=== PATIENT | female | born 1990 | race Caucasian/White ===

== ENCOUNTER 2017-07-13 23:24 | Observation (INO) ==
[2017-07-13] MEDS ORDERED: DEXAMETHASONE 4 MG/ML INJECTION IVP ONE (23:29)
--- NOTE | 2017-07-13 23:39 | Emergency Department Report ---
Seizure HPI - General Stated Complaint: Seizure Time Seen by Provider: 07/13/17 23:28 Source: patient, EMS Mode of arrival: EMS Limitations: no limitations - History of Present Illness HPI Narrative: Pt has known seizure hx and takes Vimpat 200mg BID. Loami "odd" this evening, then had her first sx at 2100 - "awoke in my bed feeling like I had had a seizure" She called EMS because she had ongoing tremors and feelings of something wrong. En route Pt had second tonic/clonic seizure with LOC for 1-2 minutes. Was given Ativan 2mg and immediately stopped seizing and remembered who she was, who the paramedics were and asked if she had another seizure. Pt admits 2-3 beers nightly, and states she has 1 seizure sometime routinely, but never two. Patient's last seizure prior to this was in April Recently moved from [facility]. New to Dr. Gibson's practice with no local neurologist. Patient also complains of awakening after her seizure with mild abdominal discomfort. No specific area of pain, no nausea, but vague epigastric discomfort. During seizure patient had no oral injury, no tendon injury, no head injury, did not lose control of her bladder or bowels, and had no other injury. also notes that her neurologist is given her prescription for Ativan 1 mg , to use as needed when she "feels a seizure coming on." - Related Data Home Medications Medication Instructions Recorded Confirmed LORazepam [Lorazepam] 1 tab PO DAILY 07/13/17 07/14/17 Previous Rx's Medication Instructions Recorded norgestimate 0.25 mg-ethinyl 1 tab PO DAILY #84 tab 06/16/17 estradiol 35 mcg tablet lacosamide 200 mg tablet 200 mg PO BID #60 tab 06/29/17 paroxetine 20 mg tablet 20 mg PO QAM #30 tab 06/29/17 Allergies Allergy/AdvReac Type Severity Reaction Status Date / Time cocoa beans Allergy Severe Rash and Uncoded 07/13/17 23:59 watery eyes, coughing and hard to breathe [facility] Patient Stated Medical History Other Musculoskeletal Yes: ARTHRITIS Depression Yes Clinic Medical History Arthritis (Chronic Medical) Depression (Chronic Medical) Seizure disorder (Chronic Medical) Surgical History: Reconstruction of right shoulder 2006. Reconstruction of left shoulder 2008. Reconstruction of right shoulder 2009. Reconstruction of right shoulder 2015. Repair of screws in left shoulder 2017 Family History: Family History Mother Arthritis Diabetes Maternal Grandmother Hypertension Diabetes Father Liver disease Maternal Grandfather Diabetes Hypertension - Social History Smoking status: Current every day smoker Physical Exam - Limitations Limitations: no limitations - General General appearance: alert - Normal Exams: Head:: Normocephalic without trauma Eyes:: Pupils are PERRLA w/ EOMI, No scleral icterus, irritation, or foreign bodies noted ENMT:: No facial trauma, nasal exudates, pharyngeal erythema, or exudates are noted Neck:: Full range of motion, without adenopathy, JVD, bruits or thyromegaly Cardiovascular:: Regular rate and rhythm, without murmur or gallop, Pulses 2+ all extremities, capillary refill, <2 seconds all extremities Abdomen:: Bowel sounds positive, soft, non-tender, non-distended, no hepatosplenomegaly, masses or bruits noted Lymphatic:: No lymphadenopathy, or lymphedema noted Musculoskeletal:: No tenderness, or deformity noted, good range of motion, all extremities Integumentary:: No rashes, hives, or bruising noted, hair and nails, without abnormality Neurological:: Patient is alert, and oriented, cranial nerves, motor/sensory/ cerebellar, exams w/o gross deficits, to observation Psychiatric:: Patient exhibits, appropriate attention, emotion and affect Course Vital Signs Temperature 98.5 F 07/13/17 23:27 Pulse Rate 93 07/13/17 23:27 Respiratory Rate 19 07/13/17 23:27 Blood Pressure 141/82 H 07/13/17 23:27 Pulse Oximetry 98 07/13/17 23:27 Temperature 98.5 F 07/13/17 23:27 Pulse Rate 93 07/13/17 23:27 Respiratory Rate 19 07/13/17 23:27 Blood Pressure 141/82 H 07/13/17 23:27 Pulse Oximetry 98 07/13/17 23:27 Seizure - MDM Narrative Medical decision making narrative: Later on secondary exam, patient complains of left posterior shoulder pain, stating that she feels like she might of hit her left shoulder: Ambulance. I spoke with paramedics, patient had no significant trauma in the ambulance, did not strike anything, and had no visible trauma externally. Patient continues to complain of sharp shooting pains through the left shoulder from back to front, similar to when she was coming out of anesthesia after her bilateral shoulder surgeries. Patient is given Toradol 30 mg IV Throughout the ER visit, patient had a rather odd affect, that was consistent between examiners. CBC - normal CMP/L - minimal electrolyte abnormalities only, consistent with mild dehydration versus postictal state EtOH is minimally elevated at 35, consistent with the patient's history of 2-3 beers earlier in the evening U A/P - negative Prolactin - elevated 29.5 Patient discussed with hospitalist, patient will be accepted for recurrent seizures, for overnight observation - Lab Data Result diagrams: 07/13/17 23:42 07/13/17 23:42 Lab Results 07/13/17 07/13/17 07/13/17 Range/Units 23:39 23:39 23:39 WBC (4.5-11.0) T/MM3 RBC (4.00-5.20) M/MM3 Hgb (12-16) GM/DL Hct (36-46) % MCV (80-100) UM3 MCH (26-34) UUG MCHC (31-37) GM/DL RDW Std Deviation (36.9-50.2) FL Plt Count (130-400) T/MM3 MPV (9.4-12.4) UM3 Immature Gran % (Auto) (0.0-0.5) % Neut % (Auto) (33-66) % Lymph % (Auto) (23-45) % Coffey % (Auto) (0-9.0) % Eos % (Auto) (0-4) % Baso % (Auto) (0-2) % Neut # (1.8-7.7) T/MM3 Lymph # (1-4.8) T/MM3 Coffey # (0-0.8) T/MM3 Eos # (0-0.5) T/MM3 Baso # (0-0.2) T/MM3 Abs Immat Gran (auto) (0.00-0.03) T/MM3 Turbidity (0-20) Sodium (134-144) MEQ/L Potassium (3.6-5) MEQ/L Chloride (98-107) MEQ/L Carbon Dioxide (22-30) MEQ/L Anion Gap (5-15) MEQ/L BUN (7-17) MG/DL Creatinine (0.7-1.2) MG/DL GFR Calculation BUN/Creatinine Ratio (6-26) RATIO Glucose (65-110) MG/DL Calculated Osmolality (261-280) MOSM/KG Calcium (8.4-10.2) MG/DL Total Bilirubin (0.20-1.30) MG/DL Conjugated Bilirubin (0.00-0.30) MG/DL Unconjugated Bilirubin (0.00-11.10) MG/DL Icterus Index (0-7) AST (14-36) U/L ALT (9-52) U/L Alkaline Phosphatase (38-126) U/L Total Protein (6.3-8.2) G/DL Albumin (3.5-5.0) G/DL Globulin (2.4-3.6) G/DL Albumin/Globulin Ratio (1.1-2.2) RATIO Lipase (23-300) U/L Prolactin NG/ML Specimen Hemolysis (0-25) Ur Collection Type Urine, clean catch Urine Color Yellow (YELLOW) Urine Clarity Clear Urine pH 6.0 (5.0-8.0) Ur Specific [place] 1.015 (1.015-1.025) Urine Protein Negative (NEGATIVE) Urine Glucose (UA) Negative (NEGATIVE) Urine Ketones Negative (NEGATIVE) Urine Occult Blood 3+ A (NEGATIVE) Urine Nitrate Negative (NEGATIVE) Urine Bilirubin Negative (NEGATIVE) Urine Urobilinogen 0.2 (NORMAL) EU/DL Ur Leukocyte Esterase Negative (NEGATIVE) Urine RBC None seen (0-3) /HPF Urine WBC None seen (0-5) /HPF Ur Squamous Epith Cells 0-5 Urine Bacteria None seen (NEGATIVE) Ur Culture Indicated? Cult not indicated Urine Test Negative (Negative) Urine Opiates Screen Negative ng/mL Ur Oxycodone Screen Negative ng/mL Urine Methadone Screen Negative ng/mL Ur Propoxyphene Screen Negative ng/mL Ur Barbiturates Screen Negative ng/mL U Tricyclic Antidepress Negative ng/mL Ur Phencyclidine Scrn Negative ng/mL Ur Amphetamines Screen Negative ng/mL U Methamphetamines Scrn Negative ng/mL U Benzodiazepines Scrn Positive ng/mL Urine Cocaine Screen Negative ng/mL U Cannabinoids Screen Negative ng/mL Ur Drug Screen Confirm Alcohol, Quantitative (<10) MG/DL 08/15/17 08/15/17 08/15/17 Range/Units 23:39 23:42 23:42 WBC 10.7 (4.5-11.0) T/MM3 RBC 4.02 (4.00-5.20) M/MM3 Hgb 12.7 (12-16) GM/DL Hct 37.3 (36-46) % MCV 92.8 (80-100) UM3 MCH 31.6 (26-34) UUG MCHC 34.0 (31-37) GM/DL RDW Std Deviation 43.0 (36.9-50.2) FL Plt Count 245 (130-400) T/MM3 MPV 12.1 (9.4-12.4) UM3 Immature Gran % (Auto) 0.1 (0.0-0.5) % Neut % (Auto) 40.7 (33-66) % Lymph % (Auto) 52.1 H (23-45) % Coffey % (Auto) 4.8 (0-9.0) % Eos % (Auto) 1.9 (0-4) % Baso % (Auto) 0.4 (0-2) % Neut # 4.4 (1.8-7.7) T/MM3 Lymph # 5.6 H (1-4.8) T/MM3 Coffey # 0.5 (0-0.8) T/MM3 Eos # 0.2 (0-0.5) T/MM3 Baso # 0.0 (0-0.2) T/MM3 Abs Immat Gran (auto) 0.01 (0.00-0.03) T/MM3 Turbidity < 20 (0-20) Sodium 145 H (134-144) MEQ/L Potassium 4.2 (3.6-5) MEQ/L Chloride 112 H (98-107) MEQ/L Carbon Dioxide 18 L (22-30) MEQ/L Anion Gap 15 (5-15) MEQ/L BUN 6.0 L (7-17) MG/DL Creatinine 0.5 L (0.7-1.2) MG/DL GFR Calculation 150 BUN/Creatinine Ratio 12 (6-26) RATIO Glucose 73 (65-110) MG/DL Calculated Osmolality 276 (261-280) MOSM/KG Calcium 9.6 (8.4-10.2) MG/DL Total Bilirubin 0.70 (0.20-1.30) MG/DL Conjugated Bilirubin 0.00 (0.00-0.30) MG/DL Unconjugated Bilirubin 0.10 (0.00-11.10) MG/DL Icterus Index < 2 (0-7) AST 27 (14-36) U/L ALT 25 (9-52) U/L Alkaline Phosphatase 66 (38-126) U/L Total Protein 7.6 (6.3-8.2) G/DL Albumin 4.4 (3.5-5.0) G/DL Globulin 3.2 (2.4-3.6) G/DL Albumin/Globulin Ratio 1.4 (1.1-2.2) RATIO Lipase 111 (23-300) U/L Prolactin 29.2 NG/ML Specimen Hemolysis 99 H (0-25) Ur Collection Type Urine Color (YELLOW) Urine Clarity Urine pH (5.0-8.0) Ur Specific [place] (1.015-1.025) Urine Protein (NEGATIVE) Urine Glucose (UA) (NEGATIVE) Urine Ketones (NEGATIVE) Urine Occult Blood (NEGATIVE) Urine Nitrate (NEGATIVE) Urine Bilirubin (NEGATIVE) Urine Urobilinogen (NORMAL) EU/DL Ur Leukocyte Esterase (NEGATIVE) Urine RBC (0-3) /HPF Urine WBC (0-5) /HPF Ur Squamous Epith Cells Urine Bacteria (NEGATIVE) Ur Culture Indicated? Urine Test (Negative) Urine Opiates Screen ng/mL Ur Oxycodone Screen ng/mL Urine Methadone Screen ng/mL Ur Propoxyphene Screen ng/mL Ur Barbiturates Screen ng/mL U Tricyclic Antidepress ng/mL Ur Phencyclidine Scrn ng/mL Ur Amphetamines Screen ng/mL U Methamphetamines Scrn ng/mL U Benzodiazepines Scrn ng/mL Urine Cocaine Screen ng/mL U Cannabinoids Screen ng/mL Ur Drug Screen Confirm Sent out Alcohol, Quantitative 35 (<10) MG/DL Disposition Clinical Impression: Seizures [place]: 02 [place] [facility] [place] Improved Prescriptions: No Action LORazepam [Lorazepam] 1 tab PO DAILY paroxetine 20 mg tablet 20 mg PO QAM #30 tab norgestimate 0.25 mg-ethinyl estradiol 35 mcg tablet 1 tab PO DAILY #84 tab lacosamide 200 mg tablet 200 mg PO BID #60 tab - Seen By: physician
[2017-07-14] MEDS ORDERED: NS 1,000 ML IV ONE
[2017-07-14] MEDS: SALINE FLUSH 10ml SYRINGE IVF PRN ×2 (00:15→01:58)
[2017-07-14] MEDS ORDERED: KETOROLAC 30 MG/ML INJECTION IVP ONE (00:38)
[2017-07-14] MEDS ORDERED: ORPHENADRINE 60 MG/2 ML INJECTION IV ONE (01:44)
[2017-07-14] MEDS ORDERED: HYDROMORPHONE 2 MG/ML INJECTION IVP ONE (01:44)
[2017-07-14] MEDS ORDERED: HYDROCODONE/APAP 5mg/325mg TABLET PO PRN ×2 (02:13→03:53)
[2017-07-14] MEDS ORDERED: ONDANSETRON 4 MG/2 ML INJECTION IVP PRN (02:13)
[2017-07-14 03:01] VITALS: BMI 37.3
--- NOTE | 2017-07-14 03:57 | History & Physical Report ---
History of Present Illness Date: 07/14/17 Chief complaint: seizure HPI: The pt has a known seizure disorder and has been on Vimpat 200 BID for 2-3 months and was doing well until tonight when she had a grand mal seizure at home. She denies any significant pain except for chronic pain in the shoulder. There was no incontinence, the pt states she usually has a seizure once a month, but not associated with her monthly menses which she is currently on. Seizure were dx in 2001, and triggered by stress, depression, anger, or anxiety. Review of Systems - Constitutional Constitutional: Present: daytime sleepiness, fatigue - EENMT Mouth/Throat: Absent: sore throat, sores - Cardiovascular Cardiovascular: Absent: chest pain - Respiratory Respiratory: Absent: dyspnea - Gastrointestinal Gastrointestinal: Absent: abdominal pain - Genitourinary Genitourinary: Absent: abnormal menses, urinary incontinence - Musculoskeletal Musculoskeletal: Present: joint swelling, limited range of motion PFS Patient Stated Medical History Seizures Yes: epilepsy Asthma Yes Pneumonia Yes Osteoarthritis Yes Other Musculoskeletal Yes: ARTHRITIS Anesthesia Reactions Yes: possibility caused seizures Depression Yes Ovarian Cysts Yes Clinic Medical History Arthritis (Chronic Medical) Depression (Chronic Medical) Seizure disorder (Chronic Medical) Surgical History: Reconstruction of right shoulder 2006. Reconstruction of left shoulder 2009. Reconstruction of right shoulder 2009. Reconstruction of right shoulder 2014. Repair of screws in left shoulder 2017 Family History: Family History Mother Arthritis Diabetes Maternal Grandmother Hypertension Diabetes Father Liver disease Maternal Grandfather Diabetes Hypertension - Social History Smoking status: Current every day smoker Medications Home Medications Medication Instructions Recorded Confirmed Type LORazepam [Lorazepam] 1 tab PO DAILY 07/13/17 07/14/17 History Allergies Allergy/AdvReac Type Severity Reaction Status Date / Time cocoa beans Allergy Severe Rash and Uncoded 07/13/17 23:59 watery eyes, coughing and hard to breathe Exam Vital Signs: Temperature 98.5 F 07/13/17 23:27 Pulse Rate 79 07/14/17 02:00 Respiratory Rate 16 07/14/17 02:00 Blood Pressure 136/81 07/14/17 02:00 Pulse Oximetry 97 07/14/17 02:00 Height/Weight/BMI: Height 1.55 m Weight 89.5 kg Body Mass Index 37.3 - Constitutional Present: no acute distress, well nourished - Routine HEENT Exam Head: Present: normocephalic, atraumatic. Absent: abrasion, laceration Eye: Present: EOMI, PERRL ENT: Present: mucous membranes moist - Routine Neck Exam Present: supple - Routine Respiratory Exam Present: CTA bilaterally - Routine Cardiovascular Exam Present: RRR, no murmur - Routine Abdominal Exam Present: soft, normoactive bowel sounds, tenderness, non distended, non tender - Routine Skin Exam Present: intact - Routine Neurological Exam Present: alert, oriented X3, CN II-XII intact - Routine Psychiatric Exam Present: normal affect Results - Labs CBC & Chem 7: 07/13/17 23:42 07/13/17 23:42 Assessment and Plan (1) Seizures Current visit: Yes Status: Acute 07/14/17 03:59 will admit the pt and have seizure precautions, restart vimpat, consult neuro, monitor for changes. Resuscitation Status: Full Code Hospital Course Summary Disclaimer: The visit summary below is not to be considered part of the above Progress Note.
[2017-07-14] MEDS ORDERED: LACOSAMIDE 100mg TABLET PO SCH ×2 (04:00→09:00)
--- NOTE | 2017-07-14 08:40 | Progress Note ---
<Megan Gallegos V - Last Filed: 07/14/17 08:45> Subjective: Meli is seen this morning following phone call from nursing staff reporting a active grand mal seizure lasting approx 2 minutes. She is noted to be postictal during examination however she will slowly become more alert and states "I think I had a seizure". Airway is protected during seizure activity. She complains generalized pain following seizure. She does report that she missed a dose of Vimpat on Wednesday night however has been compliant since that time. Objective Vital signs: Temperature 98.0 F 07/14/17 07:23 Pulse Rate 64 07/14/17 07:36 Respiratory Rate 14 07/14/17 07:23 Blood Pressure 132/82 07/14/17 07:23 Pulse Oximetry 98 07/14/17 07:23 Oxygen Delivery Method Room Air Height/Weight/BMI: Height 1.55 m Weight 89.4 kg Body Mass Index 37.3 - Constitutional Present: well nourished, well developed - Routine HEENT Exam Eye: Present: EOMI ENT: Present: mucous membranes moist, dentition normal - Routine Respiratory Exam Present: CTA bilaterally. Absent: wheezes - Routine Cardiovascular Exam Present: RRR, S1, S2. Absent: murmur - Routine Abdominal Exam Present: soft, normoactive bowel sounds, non distended. Absent: tenderness - Routine Extremities Exam Present: pulses intact Comments: Left shoulder pain - Routine Skin Exam Present: intact, dry, warm - Routine Neurological Exam Present: alert, oriented X3, moving all extremities, hearing grossly intact CN 3-12 intact - Routine Lymphatic Exam Lymphatic: Absent: adenopathy - Routine Psychiatric Exam Present: normal affect Results - Labs CBC & Chem 7: 07/13/17 23:42 07/13/17 23:42 Assessment and Plan (1) Seizures Current visit: Yes Status: Acute 07/14/17 03:59 will admit the pt and have seizure precautions, restart vimpat, consult neuro, monitor for changes. Assessment and Plan: Impression Seizure Recent left shoulder surgery- March 2017 OA Plan Acutely during seizure Ativan 1 mg IV was given. Patient is chronically on Vimpat 200mg BID for seizures. She also reports that she takes 1 milligram of oral Ativan when she feels a seizure coming on. Given increased pain of the left shoulder following surgery in March. Will obtain x-ray of the left shoulder to rule out any intraosseous abnormality. Consult was placed to Dr Amanda for further neurologic evaluation, and recommendations. Will discuss further plan of care with attending Sepsis Assessment - Evaluation Sepsis screening result: No Definite Risk Hospital Course Summary Disclaimer: The visit summary below is not to be considered part of the above Progress Note. <MilStacey L - Last Filed: 07/14/17 11:20> Objective Vital signs: Temperature 98.0 F 07/14/17 07:23 Pulse Rate 64 07/14/17 07:36 Respiratory Rate 14 07/14/17 07:23 Blood Pressure 132/82 07/14/17 07:23 Pulse Oximetry 98 07/14/17 07:23 Oxygen Delivery Method Room Air Height/Weight/BMI: Height 1.55 m Weight 89.4 kg Body Mass Index 37.3 Results - Labs CBC & Chem 7: 07/13/17 23:42 07/13/17 23:42 Assessment and Plan (1) Seizures Current visit: Yes Status: Acute Assessment and Plan: Events noted, discussed with nursing/Megan Gallegos APRN; see admission H&P/ addendum. Hospital Course Summary Disclaimer: The visit summary below is not to be considered part of the above Progress Note.
[2017-07-14] MEDS ORDERED: LORazepam 1 MG TABLET PO SCH (09:00)
[2017-07-14] MEDS ORDERED: PAROXETINE 20 MG TABLET PO SCH (09:00)
[2017-07-14] MEDS ORDERED: NORGESTIMATE ETHINYL ESTRADIOL PO SCH (09:00)
--- NOTE | 2017-07-14 09:37 | XRay Report ---
Indication: left shoulder pain PROCEDURE: XR shoulder LT 2-3 views: Encounter: Initial Comparison: None Findings: There is no acute fracture, dislocation or malalignment identified. Suture anchors in the glenoid. Impression: No acute osseous abnormality. .
--- NOTE | 2017-07-14 13:26 | Consultation ---
DATE OF CONSULTATION 07/14/[address] Jaeger CHIEF COMPLAINT Seizure. HISTORY OF PRESENT ILLNESS Patient is a 27-year-old female with history of epilepsy since 2001. The patient had extensive workup done for epilepsy in the past, most of which was unremarkable as per patient and records. Her last EEG and video monitoring were a year ago and showed no seizure activities at that time. Patient described having different types of seizure including staring spells, spacing out, loss of awareness, in addition to generalized tonic-clonic seizures. Most of her grand mal seizures have happened in the evening or during sleep. Her seizures have been triggered mainly by anxiety and stress. The patient has a history of alcohol and drug abuse and she has been sober and clean for several months. The patient denies taking any illicit drugs prior to her admission. The patient presented with a generalized tonic-clonic seizure in the evening. This was typical for her seizures, lasted for a few minutes. The patient had some mild tongue biting and no incontinence. She has had mild postictal confusion. Patient described having seizure on a monthly basis, especially for the grand mal type seizure. She used to have more frequent staring spells during the daytime. All of her seizures have improved after she was switched from Depakote to Vimpat two months ago. The patient is currently on 200 mg p.o. b.i.d. of Vimpat. She has taken her medication regularly. She had skipped a few doses over the past two months. Her lab workup showed a normal white count. Her sodium level was slightly elevated. She had normal liver enzymes and her prolactin level was borderline. The patient has been complaining of left shoulder pain after the seizure and her x-rays were unremarkable. PHYSICAL EXAMINATION The patient was awake, alert, oriented x 3. Pupils were round, reactive and equal. Extraocular muscles were intact. Visual field was full. Sensory examination for light touch, pinprick and temperature sensation were all normal. Deep tendon reflexes were 2/4. Motor examination was 5-/5 in the upper extremity due to shoulder problem and 5/5 in the lower extremities. Coordination for [id number] was normal. ASSESSMENT 1. Complex partial seizure and nocturnal epilepsy. This has been controlled with Vimpat. The patient has had a few seizures in the past two months associated with increased stress and anxiety. The patient has a normal examination and no other secondary cause for seizure. PLAN 1. Continue Vimpat 200 mg p.o. b.i.d. for seizure prevention. 2. Consider adding Topamax 25 mg p.o. b.i.d. and increase it up to 100 mg p.o. b.i.d. if the patient starts having worse seizure problem. 3. Avoid sleep deprivation and stress. Avoid any usage of alcohol or street drugs. MTDD
[2017-07-14 15:39] VITALS: BP 130/85; PULSE 66; RESP 16; TEMP 96.4; O2SAT 99
--- NOTE | 2017-07-14 17:37 | Discharge Instructions ---
Discharge Plan - Med Rec/Dispo Referrals/Follow Up: Pelon Gibson DO [Family Provider] - Gerri Amnada MD [Physician] - (2-4 weeks for reevaluation of seizure control ) Ingris Instructions: Recurrent Seizures in Adults (GEN) Prescriptions: Continue LORazepam [Lorazepam] 1 tab PO DAILY paroxetine 20 mg tablet 20 mg PO QAM #30 tab norgestimate 0.25 mg-ethinyl estradiol 35 mcg tablet 1 tab PO DAILY #84 tab lacosamide 200 mg tablet 200 mg PO BID #60 tab Discharge Instructions/Outpatient Orders: Final Provider Discharge Instructions Location: Determined By Patient - Disposition 01 Discharged Home, Self-Care
--- NOTE | 2017-07-14 17:45 | Discharge Summary ---
Discharge Information Date of admission: 07/14/17 02:34 Anticipated date of discharge: 07/14/17 Attending Physician: Stacey Jaeger MD Primary care physician: Pelon Gibson DO Consults: Gerri Amanda - Discharge Diagnosis Discharge Diagnosis: Seizure disorder, partial complex - Laboratory Labs: CBC, CMP unremarkable other than HCO3 of 18. Lipase 111, prolactin 29.2. Urine drug screen positive for benzodiazepines (received lorazepam prior to hospitalization), alcohol level 35 - Radiology Radiology: X-ray left shoulder, 3 views: There is no acute fracture, dislocation or malalignment identified. Suture anchors in the glenoid. History of Present Illness HPI: Meli is a 27-year-old with known seizure disorder diagnosed in 1998. The following year she had a head injury after she tripped and struck her head on a picnic table resulting in LOC/head lac following year with increased frequency seizures thereafter. She's been treated with multiple seizure medications since that time. She was most recently on Depakote ER 1000 mg until April 2016 when Vimpat 100 mg twice a day was added to her regimen. Patient apparently discontinued Depakote in conjunction with starting Vimpat and Vimpat was subsequently increased to 200 mg twice a day in November 2016. EEG in awake and sleep deprived state in April 2016 demonstrated absence of epileptiform discharge ; video EEG was referenced in November 2016 note indicating at least one nonepileptic event. She has had past MRIs performed at [facility] in [place] although results were not referenced in the records are received. She presented to the emergency room yesterday evening after a grand mal seizure at home. She describes preceding aura typically lasting from several seconds to 5 minutes during which she feels warm and senses something bad or fearful followed by lightheadedness. She said people have told her she begins repeating herself. She describes muscle fatigue and feeling foggy prior to seizure and then she surrounded by people who tell her she's had a seizure. Grand mal symptoms described by bystanders. Patient had one event at home at approximately 9 PM yesterday evening followed by a second generalized tonic-clonic seizure en route witnessed by EMS and treated with 2 mg Ativan. She had one additional witnessed generalized seizure this morning treated with lorazepam and promptly resolved. Patient acknowledges having missed at least one dose of Vimpat 24 hours prior to onset of seizures and notes that seizures are often triggered by emotional events and that she was quite emotional yesterday evening. Hospital Course This is a general summary of the patient's hospital course. For more details refer to the complete medical record. Hospital course: Patient was admitted for observation after's 2 seizures prior to hospitalization. She had one additional seizure at approximate 8 AM on 07/14 which resolved promptly with administration of 1 mg IV Ativan. No further difficulties were encountered through the day. Patient was seen by Dr. Amanda and offered addition of low-dose Topamax in conjunction with Vimpat to minimize risk of recurrent seizures. At this time the patient elected to continue Vimpat as a single agent with intent of being more conscientious about taking medication daily. Patient was much more alert late in the afternoon and felt stable for discharge at this time. Meli was advised she should not drive until seizure free for 6 months and that she should follow-up with Dr. Gibson in approximately one week and Dr. Amanda in 2-4 weeks for reassessment of seizure control. Discharge Plan - Med Rec/Dispo Referrals/Follow Up: Gerri Amanda MD [Physician] - (2-4 weeks for reevaluation of seizure control ) Pelon Gibson DO [Family Provider] - Ingris Instructions: Recurrent Seizures in Adults (GEN) Prescriptions: Continue LORazepam [Lorazepam] 1 tab PO DAILY paroxetine 20 mg tablet 20 mg PO QAM #30 tab norgestimate 0.25 mg-ethinyl estradiol 35 mcg tablet 1 tab PO DAILY #84 tab lacosamide 200 mg tablet 200 mg PO BID #60 tab Discharge Instructions/Outpatient Orders: Final Provider Discharge Instructions Location: Determined By Patient
== END 2017-07-14 18:10 | disposition home or self-care (01) ==
LOC: ED 23:24 → MED 23:24
PROVIDERS: ADMIT Internal Medicine; ATTEND Internal Medicine